=== PATIENT | male | born 1985 | race Caucasian/White ===

== ENCOUNTER 2018-07-08 06:46 | Emergency (ER) | payer OTHER ==
[2018-07-08 06:52] VITALS: BP 134/74; PULSE 97; RESP 19; TEMP 98
[2018-07-08] MEDS ORDERED: SULFAMETH-TMP DS STARTER PACK 2 TAB BTL PO STA (07:26)
--- NOTE | 2018-07-08 07:29 | ED ---
General Adult HPI - General Chief complaint: Skin/Abscess/Foreign Body Stated complaint: lumps in armpit Time Seen by Provider: 07/08/18 07:16 Source: patient, RN notes reviewed Mode of arrival: ambulatory Limitations: no limitations - Related Data Home Medications Medication Instructions Recorded Confirmed D-Methorphan/PE/Acetaminophen 1 cap PO DAILY PRN 07/08/18 07/08/18 [Vicks Dayquil Liquicaps] Ibuprofen [Motrin Ib] 600 mg PO Q6H PRN 07/08/18 07/08/18 Previous Rx's Medication Instructions Recorded Sulfamethox-Tmp 800-160Mg [Bactrim 1 tab PO Q12HR #20 tab 07/08/18 DS 800-160 mg] Allergies Allergy/AdvReac Type Severity Reaction Status Date / Time No Known Allergies Allergy Verified 07/08/18 07:21 Review of Systems ROS Statement: Those systems with pertinent positive or pertinent negative responses have been documented in the HPI. ROS Other: All systems not noted in ROS Statement are negative. Past Medical History Past Medical History: No Reported History History of Any Multi-Drug Resistant Organisms: None Reported Past Surgical History: Hernia Repair Past Psychological History: Depression Smoking Status: Current every day smoker Past Alcohol Use History: Occasional Past Drug Use History: None Reported General Exam Limitations: no limitations Course Vital Signs 07/08/18 06:49 Temperature 98.0 F Pulse Rate 97 Respiratory 19 Rate Blood Pressure 134/74 O2 Sat by Pulse 96 Oximetry Disposition Clinical Impression: Abscess Disposition: HOME SELF-CARE Condition: Good Instructions: Abscess (ED) Additional Instructions: Please use warm compresses to the affected area as discussed. Please use antibiotic as prescribed. Please follow-up surgeon over the next 2 days if symptoms are improving. Please return to the emergency room if any symptoms increase or worsen as discussed. Prescriptions: Sulfamethox-Tmp 800-160Mg [Bactrim DS 800-160 mg] 1 tab PO Q12HR #20 tab Is patient prescribed a controlled substance at d/c from ED?: No Referrals: Riccardo Dunbar MD [Primary Care Provider] - 1-2 days Alvaro Mathis MD [Medical Doctor] - 1-2 days Time of Disposition: 07:28
== END 2018-07-08 07:37 | disposition home or self-care (01) ==
LOC: EC 06:46
DX: L02.414 Cutaneous abscess of left upper limb (principal); F17.200 Nicotine dependence, unspecified, uncomplicated
CPT/HCPCS: 99282

== ENCOUNTER 2018-07-11 03:36 | Inpatient (IN) | payer OTHER ==
--- NOTE | 2018-07-11 04:07 | ED ---
General Adult HPI - General Chief complaint: Psychiatric Symptoms Stated complaint: petition Time Seen by Provider: 07/11/18 03:48 Source: patient Mode of arrival: ambulatory Limitations: no limitations - History of Present Illness Initial comments: Marcell is a 33-year-old gentleman who is brought to the emergency department today I police for psychiatric evaluation. Per the patient he has been feeling suicidal because his has indicated that she wants to in their marriage. Patient reports that he been drinking alcohol this evening and then decided to kill himself. He walked into his driveway with a loaded shotgun with an intent to shoot himself. However one of his friends contacted police and police arrived on scene, patient had the shotgun beside him, he didn't make any attempt to harm anybody else. Police were able to bring the patient in without any difficulty.. Rupali report that the patient was arrested Thursday night at a bar because he was intoxicated and had a concealed gun on him at that time. He was released from police custody Thursday. They were called to a residence this evening for possible suicidal her son with a gun, he reports that they arrived and the patient was sitting in his driveway, with a shotgun beside him. On further evaluation the shotgun was in fact bloated. The she remained calm and cooperative insisting that he'll need to harm himself else. He was agreeable to stretch ER. - Related Data Home Medications Medication Instructions Recorded Confirmed D-Methorphan/PE/Acetaminophen 1 cap PO DAILY PRN 07/08/18 07/11/18 [Vicks Dayquil Liquicaps] Ibuprofen [Motrin Ib] 600 mg PO Q6H PRN 07/08/18 07/11/18 Previous Rx's Medication Instructions Recorded Ibuprofen [Motrin] 800 mg PO Q6HR #20 tab 07/08/18 Allergies Allergy/AdvReac Type Severity Reaction Status Date / Time No Known Allergies Allergy Verified 07/11/18 03:41 Review of Systems ROS Statement: Those systems with pertinent positive or pertinent negative responses have been documented in the HPI. ROS Other: All systems not noted in ROS Statement are negative. Past Medical History Past Medical History: No Reported History History of Any Multi-Drug Resistant Organisms: None Reported Past Surgical History: Hernia Repair Past Psychological History: Depression Smoking Status: Current every day smoker Past Alcohol Use History: Occasional Past Drug Use History: None Reported General Exam - General Exam Comments Initial Comments: GENERAL: Patient is well-developed and well-nourished. Patient appears intoxicated HENT: Normocephalic, Atraumatic. EYES: The sclera were anicteric and conjunctiva were pink and moist. Extraocular movements were intact and pupils were equal round and reactive to light. Eyelids were unremarkable. PULMONARY: Unlabored respirations. Good breath sounds bilaterally. No audible rales rhonchi or wheezing was noted. CARDIOVASCULAR: There is a regular rate and rhythm without any murmurs gallops or rubs. ABDOMEN: Soft and nontender with normal bowel sounds. SKIN: Skin is clear with no lesions or rashes and otherwise unremarkable. NEUROLOGIC: Patient is alert and oriented x3. Cranial nerves II through XII are grossly intact. Motor and sensory are also intact. Normal speech, volume and content. Symmetrical smile. MUSCULOSKELETAL: Normal extremities with adequate strength and full range of motion. No lower extremity swelling or edema. No calf tenderness. LYMPHATICS: No significant lymphadenopathy is noted PSYCHIATRIC: Suicidal Limitations: no limitations Limitations: no limitations Course Vital Signs 07/11/18 07/11/18 03:38 06:53 Temperature 98 F 97.7 F Pulse Rate 94 72 Respiratory 16 16 Rate Blood Pressure 126/83 123/74 O2 Sat by Pulse 95 99 Oximetry Medical Decision Making - Medical Decision Making Patient was seen and evaluated immediately upon arrival to the emergency department. Patient was in police custody for suicidal thoughts patient actively expressing suicidal thoughts. Patient is intoxicated, has a history of alcohol abuse, reports recent possible dissolution of his marriage, was found with a loaded shotgun. I do feel this patient is very high risk for completing suicide. Patient was petitioned by police. Currently intoxicated with alcohol 0.12, will be sober and approximately 2-3 hours and he can be evaluated by psychiatry. Patient calm cooperative in the ER. - Lab Data Lab Results 07/11/18 Range/Units 03:51 Urine Opiates Screen Not Detected (NotDetected) Ur Oxycodone Screen Not Detected (NotDetected) Urine Methadone Screen Not Detected (NotDetected) Ur Propoxyphene Screen Not Detected (NotDetected) Ur Barbiturates Screen Not Detected (NotDetected) U Tricyclic Antidepress Not Detected (NotDetected) Ur Phencyclidine Scrn Not Detected (NotDetected) Ur Amphetamines Screen Not Detected (NotDetected) U Methamphetamines Scrn Not Detected (NotDetected) U Benzodiazepines Scrn Not Detected (NotDetected) Urine Cocaine Screen Not Detected (NotDetected) U Marijuana (THC) Screen Not Detected (NotDetected) Disposition Clinical Impression: Depression, Suicidal ideation Disposition: TRANSFER TO PSYCH HOSP/UNIT Condition: Serious Referrals: Riccardo Dunbar MD [Primary Care Provider] - 1-2 days
[2018-07-11 04:10] LABS: Amphetamine Screen,Urine Not Detected (NotDetected); Barbiturate Screen,Urine Not Detected (NotDetected); Benzodiazepines Screen,Urine Not Detected (NotDetected); Cocaine Screen,Urine Not Detected (NotDetected); Methadone Screen, Urine Not Detected (NotDetected); Opiate Screen,Urine Not Detected (NotDetected); Oxycodone Screen, Urine Not Detected (NotDetected); Phencyclidine Screen,Urine Not Detected (NotDetected); Tricyclic Antidepressant,Urine Not Detected (NotDetected); Urn Cannabinoid Scrn Not Detected (NotDetected)
[2018-07-11 08:49] VITALS: BMI 22.6
[2018-07-11] MEDS ORDERED: ACETAMINOPHEN TAB 325 MG TAB PO PRN (09:18)
[2018-07-11] MEDS ORDERED: MAG HYDROX/AL HYDROX/SIMETH 30 ML CUP PO PRN (09:18)
[2018-07-11] MEDS ORDERED: MAGNESIUM HYDROXIDE 2,400 MG/10 ML CUP PO PRN (09:18)
[2018-07-11] MEDS ORDERED: ZIPRASIDONE 20 MG VIAL IM PRN (09:18)
[2018-07-11] MEDS ORDERED: NON-FORMULARY DRUG (D-Methorphan/Pe/Acetaminophen [Vicks Dayquil Liquicaps] 1 CAP) PO PRN (09:29)
[2018-07-11] MEDS: SULFAMETHOX-TMP 800-160MG 1 EACH TAB PO SCH ×2 (10:23→20:29)
[2018-07-11] MEDS: NICOTINE 21MG/24HR PATCH TRANSDERM SCH (10:26)
--- NOTE | 2018-07-11 12:34 | P.CONS ---
History of Present Illness - History of Present Illness This is a pleasant 53 years old male with past medical history of depression who comes to the psychiatric unit with depression symptoms and suicidal ideations when he was pointing again to his head in the roadway, and he was brought by the police handcuffed to the emergency room as per patient. We've been consulted for left arm complaining. Patient complains from swelling and erythema and tenderness in his left armpit not sure for how long but he thinks this for about a week or so. He was started on Bactrim for suspected infection and abscess. And his open the wound about 2 days ago where he got some relief for 2-3 days and now is back again Review of Systems CONSTITUTIONAL: No fever, no malaise, no fatigue. HEENT: No recent visual problems or hearing problems. Denied any sore throat. CARDIOVASCULAR: No orthopnea, PND, no palpitations, no syncope. PULMONARY: No shortness of breath, no cough, no hemoptysis. GASTROINTESTINAL: No diarrhea, no nausea, no vomiting, no abdominal pain. Normoactive bowel sounds. NEUROLOGICAL: No headaches, no weakness, no numbness. HEMATOLOGICAL: Denies any bleeding or petechiae. GENITOURINARY: Denies any burning micturition, frequency, or urgency. MUSCULOSKELETAL/RHEUMATOLOGICAL: Denies any joint pain, swelling, or any muscle pain. ENDOCRINE: Denies any polyuria or polydipsia. Past Medical History Past Medical History: No Reported History History of Any Multi-Drug Resistant Organisms: None Reported Past Surgical History: Hernia Repair Past Psychological History: Depression Smoking Status: Current every day smoker Past Alcohol Use History: Occasional Past Drug Use History: None Reported - Past Family History Mother Family Medical History: Asthma, CVA/TIA Medications and Allergies Home Medications Medication Instructions Recorded Confirmed Type D-Methorphan/PE/Acetaminophen 1 cap PO DAILY PRN 07/08/18 07/11/18 History [Vicks Dayquil Liquicaps] Ibuprofen [Motrin Ib] 600 mg PO Q6H PRN 07/08/18 07/11/18 History Ibuprofen [Motrin] 800 mg PO Q6HR #20 tab 07/08/18 07/11/18 Rx Allergies Allergy/AdvReac Type Severity Reaction Status Date / Time No Known Allergies Allergy Verified 07/11/18 09:33 Physical Exam Vitals: Vital Signs Temp Pulse Pulse Resp BP BP Pulse Ox 07/11/18 08:34 96.7 F L 77 16 126/64 98 07/11/18 08:06 98 F 80 16 122/80 99 07/11/18 06:53 97.7 F 72 16 123/74 99 07/11/18 03:38 98 F 94 16 126/83 95 Intake and Output 07/10/18 07/11/18 07/11/18 22:59 06:59 14:59 Other: Weight 72.575 kg 69.4 kg GENERAL: The patient is alert and oriented x3, not in any acute distress. Well developed, well nourished. HEENT: Pupils are round and equally reacting to light. EOMI. No scleral icterus. No conjunctival pallor. Normocephalic, atraumatic. No pharyngeal erythema. No thyromegaly. CARDIOVASCULAR: S1 and S2 present. No murmurs, rubs, or gallops. PULMONARY: Chest is clear to auscultation, no wheezing or crackles. ABDOMEN: Soft, nontender, nondistended, normoactive bowel sounds. No palpable organomegaly. MUSCULOSKELETAL: No joint swelling or deformity. EXTREMITIES: No cyanosis, clubbing, or pedal edema. -Left armpit swelling with fluctuation areas surrounded by erythema and tenderness with some purulent discharge on his close NEUROLOGICAL: Gross neurological examination did not reveal any focal deficits. SKIN: No rashes. Assessment and Plan Assessment: Left armpit infection and abscess Major depression Suicidal ideation Plan: A pleasant 53 years old male who presents because of suicidal ideation. Has left armpit abscess. On Bactrim. Continue same treatment. Continue with symptomatic treatment. Call surgical consult and infectious disease for evaluation. Check blood test and monitor labs and vitals. Management of psychiatric illnesses including but not limited to depression and suicidal ideation as per primary team. DVT and GI prophylaxis . Further recommendations the clinical progress of the patient DVT prophylaxis:Patient is mobile no need for heparin GI prophylaxis:No need Thank you for consulting us, please feel free to contact us for any further clarification of question
[2018-07-11] MEDS: buPROPion XL 150 MG TAB.ER.24H PO SCH (12:58)
[2018-07-11] MEDS: ARIPiprazole 2 MG TAB PO SCH (12:58)
[2018-07-11] MEDS: LORazepam 1 MG TAB PO PRN ×2 (12:58→20:29)
[2018-07-11 13:09] LABS: Basophils # (A) 0.1 k/uL (0-0.2); Basophils % (A) 1 %; Eosinophils # (A) 0.2 k/uL (0-0.7); Eosinophils % (A) 2 %; HCT 46.1 % (39.0-53.0); HGB 15.9 gm/dL (13.0-17.5); Lymphocytes # (A) 1.8 k/uL (1.0-4.8); Lymphocytes % (A) 19 %; MCH 30.4 pg (25.0-35.0); MCHC 34.5 g/dL (31.0-37.0); MCV 88.2 fL (80.0-100.0); Mean Platelet Volume 6.6; Monocytes # (A) 0.5 k/uL (0-1.0); Monocytes % (A) 6 %; Neutrophils # (A) 6.7 k/uL (1.3-7.7); Neutrophils % (A) 71 %; Platelet Count 295 k/uL (150-450); RBC 5.22 m/uL (4.30-5.90); RDW 13.1 % (11.5-15.5); WBC 9.4 k/uL (3.8-10.6)
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
[2018-07-11 13:29] LABS: Anion Gap 10 mmol/L; Blood Urea Nitrogen 16 mg/dL (9-20); Calcium 9.4 mg/dL (8.4-10.2); Carbon Dioxide 24 mmol/L (22-30); Chloride 105 mmol/L (98-107); Glucose 91 mg/dL (74-99); Potassium 5.1 mmol/L (3.5-5.1); Sodium 139 mmol/L (137-145)
--- NOTE | 2018-07-11 17:35 | CONS ---
CONSULTATION DATE OF SERVICE: 07/11/2018. REASON FOR CONSULTATION: Left axillary abscess. HISTORY OF PRESENT ILLNESS: The patient is a 33-year-old male with a past medical history significant for recurrent folliculitis of his left axillary area. The patient states started as a which his left it and subsequently the area healed. Afterwards another area started getting growing become swollen, red and painful that was lanced by the again. Afterwards, the patient started having another area becoming more swollen and red and painful. Pain described to be throbbing almost 10/10 and severe. Did have some chills but denies any high-grade fever. With these symptoms, the patient did present to the [facility] ER on the where the patient has been diagnosed with left axillary abscess and cellulitis. The patient was started on Bactrim DS. The patient now being brought back to the ER by the police after apparently the patient was noticed to be suicidal. The patient apparently had been drinking alcohol and decided to kill himself, he walked into his driveway with a loaded shotgun with intent to shoot himself. One of his friends contacted the police and police arrived on the scene. The patient had a shotgun beside him. Subsequently the patient has been brought to the ER and has been admitted to the psych unit. Infectious disease was consulted for management of his underlying left axillary abscess. Currently started on oral Bactrim DS. REVIEW OF SYSTEMS: CONSTITUTIONAL: Positive for weakness and chills. Denies high-grade fever. Eyes no complaint. ENT no complaint. Respiratory no complaint. Cardiovascular no complaint. Genitourinary no complaint. Gastrointestinal: No complaint. Musculoskeletal no complaint. INTEGUMENTARY: As per HPI. Psychological as per HPI. ENDOCRINE: No complaint. Neurological as per HPI. PAST MEDICAL HISTORY: Depression, history of recurrent infection, aspiration left axillary area. PAST SURGICAL HISTORY: Hernia repair. SOCIAL HISTORY: Patient current everyday smoker. Patient drinks. No drug use. FAMILY HISTORY: No pertinent findings noticed. ALLERGIES: No known drug allergies. MEDICATIONS: The patient is currently on Tylenol, Maalox, Abilify, Wellbutrin, Motrin, Ativan, milk of magnesia, nicotine patch, Bactrim DS, . EXAMINATION: Blood pressure 126/64 with a pulse of 77, temperature 96.7. He is 98% on room air. General description is a middle aged male up in the chair in no distress. No tachypnea or accessory muscles of respiration use. HEENT: Shows no pallor or scleral icterus. Oral mucosa membranes are moist. No pharyngeal erythema or thrush. Neck trachea central. No thyromegaly. LUNGS: Unlabored breathing. Clear to auscultation anteriorly. No wheezes or crackles. Heart S1, S2. Regular rate and rhythm. ABDOMEN: Soft, no tenderness. No rigidity. EXTREMITIES: No edema of the feet. Examination of left axillary area, he did have multiple indurated areas which are painful to touch. No open area or any drainage. Neurologically: Patient is awake, alert, oriented times three. Mood and affect normal. LABS: Hemoglobin is 15.8, white count 9.4 with a BUN of 16, creatinine 0.98. Electrolytes have been normal. Urine drug screen has been negative. DIAGNOSTIC IMPRESSION AND PLAN: Patient with left axillary abscess, multiple that will likely need surgical drainage and in view of the and a streptococcal infection and likely MRSA. PLAN: We recommended IV vancomycin, pharmacy to dose. However, being informed by the community youth secretary they could not infuse vancomycin on this floor. The patient is too unstable mentally to be transferred to a regular medical floor. Hence plan at this time will be to increase the Bactrim DS to 2 p.o. b.i.d. Await surgical evaluation and drainage of this abscess at which time deep culture should be obtained. Once his mental condition stabilizes, and if the patient is not improving with oral Bactrim, we may need to transfer him to the medical floor for IV antibiotic therapy. Than you for this consultation. Will follow this patient along with you. MMODL / IJN: [id number] /
[2018-07-11] MEDS: IBUPROFEN 600 MG TAB PO PRN (20:30)
[2018-07-12] MEDS: SULFAMETHOX-TMP 800-160MG 1 EACH TAB PO SCH (07:47)
[2018-07-12] MEDS: ARIPiprazole 2 MG TAB PO SCH (07:47)
[2018-07-12] MEDS: buPROPion XL 150 MG TAB.ER.24H PO SCH (07:47)
[2018-07-12] MEDS: NICOTINE 21MG/24HR PATCH TRANSDERM SCH (07:47)
[2018-07-12] MEDS ORDERED: ceFAZolin IN SWFI 2 GM/20 ML SYRINGE IVP ONE (08:39)
[2018-07-12] MEDS: LORazepam 1 MG TAB PO PRN (08:58)
[2018-07-12 09:38] LABS: Basophils % (A) 1 %; Eosinophils # (A) 0.1 k/uL (0-0.7); Eosinophils % (A) 2 %; HCT 46.7 % (39.0-53.0); HGB 15.6 gm/dL (13.0-17.5); Lymphocytes # (A) 1.2 k/uL (1.0-4.8); Lymphocytes % (A) 19 %; MCH 29.9 pg (25.0-35.0); MCHC 33.4 g/dL (31.0-37.0); MCV 89.5 fL (80.0-100.0); Mean Platelet Volume 6.5; Monocytes # (A) 0.3 k/uL (0-1.0); Monocytes % (A) 6 %; Neutrophils # (A) 4.2 k/uL (1.3-7.7); Neutrophils % (A) 71 %; Platelet Count 299 k/uL (150-450); RBC 5.22 m/uL (4.30-5.90); WBC 5.9 k/uL (3.8-10.6)
[2018-07-12 09:54] LABS: Albumin 4.1 g/dL (3.5-5.0); Calcium 9.5 mg/dL (8.4-10.2); Potassium 4.4 mmol/L (3.5-5.1); Total Protein 6.8 g/dL (6.3-8.2)
--- NOTE | 2018-07-12 10:01 | P.GSCN ---
History of Present Illness Consult date: 07/12/18 History of present illness: CHIEF COMPLAINT: Left axillary abscess HISTORY OF PRESENT ILLNESS: The patient is a 33-year-old male who reports over several week history of a left axillary abscess. Reports the size being at least the size of a tennis ball. He tried self treating with a needle rupture of the abscess with minimal output. No reports of recent fevers or chills. He reports moderate tenderness of the left axilla and difficulty with moving his arm. As result of the size of the abscess, general surgery is consulted PAST MEDICAL HISTORY: See list. PAST SURGICAL HISTORY: See list. MEDICATIONS: See list. ALLERGIES: See list. SOCIAL HISTORY: No illicit drug use FAMILY HISTORY: No reports of Crohn's disease or inflammatory bowel disease REVIEW OF ORGAN SYSTEMS: CONSTITUTIONAL: No fevers or chills HEENT: No troubles with vision or hearing. No reports of dysphagia. ENDOCRINE: No reports of thyroid disorders. No diabetes. CARDIOVASCULAR: No heart attack. No chest pain. RESPIRATORY: No shortness of breath or pneumonia. GASTROINTESTINAL: No reports of recent blood in stools. NEURO: No reports of stroke or seizure disorders. PSYCH: Has depression with suicidal ideation HEMATOLOGIC: No easy bruising or bleeding LYMPHATIC: The patient denies any lumps and bumps around the neck. GENITOURINARY: Denies any blood in urine or increased urinary frequency. MUSCULOSKELETAL: Denies current back pain, stiffness or joint arthritis. SKIN: Please see above. Has a left axillary abscess. PHYSICAL EXAM: VITAL SIGNS: Currently stable. GENERAL: Well-developed in no acute distress. HEENT: No sclera icterus. Extraocular movements grossly intact. Moist buccal mucosa. Head is atraumatic, normocephalic. Hears conversational speech. No nasal drainage. NECK: Supple without lymphadenopathy. CHEST: Non-labored respirations and equal bilateral excursions. CARDIOVASCULAR: Regular rate with regular rhythm. Palpable 2+ radial pulses. ABDOMEN: Soft. Nondistended. No peritonitis. Minimal diffuse tenderness MUSCULOSKELETAL: No clubbing, cyanosis or edema. NEUROLOGIC: No focal or lateralizing signs. Cranial nerves II through XII grossly intact. PSYCH: Appropriate affect. Alert and oriented to person, place and time. SKIN: 4 cm induration and cellulitis of the left axilla over 4 cm in size with minimal drainage. LABS: Reviewed ASSESSMENT: 1. Complicated left axillary abscess, deep, 4 cm PLAN: 1. Recommend surgical drainage of complex left axillary abscess. 2. Postprocedure, will need packing daily. 3. Antibiotics per cultures to be obtained in the operating room Thank you for this kind consultation. Past Medical History Past Medical History: No Reported History History of Any Multi-Drug Resistant Organisms: None Reported Past Surgical History: Hernia Repair Past Psychological History: Depression Smoking Status: Current every day smoker Past Alcohol Use History: Occasional Past Drug Use History: None Reported - Past Family History Mother Family Medical History: Asthma, CVA/TIA Medications and Allergies Home Medications Medication Instructions Recorded Confirmed Type D-Methorphan/PE/Acetaminophen 1 cap PO DAILY PRN 07/08/18 07/11/18 History [Vicks Dayquil Liquicaps] Ibuprofen [Motrin Ib] 600 mg PO Q6H PRN 07/08/18 07/11/18 History Ibuprofen [Motrin] 800 mg PO Q6HR #20 tab 07/08/18 07/11/18 Rx Allergies Allergy/AdvReac Type Severity Reaction Status Date / Time No Known Allergies Allergy Verified 07/11/18 09:33 Surgical - Exam Vital Signs Temp Pulse Resp BP Pulse Ox 98 F 94 16 126/83 95 07/11/18 03:38 07/11/18 03:38 07/11/18 03:38 07/11/18 03:38 07/11/18 03:38 Results - Labs 07/12/18 09:20 07/12/18 09:20 Diabetes panel 07/11/18 Range/Units 12:49 Sodium 139 (137-145) mmol/L Potassium 5.1 (3.5-5.1) mmol/L Chloride 105 (98-107) mmol/L Carbon Dioxide 24 (22-30) mmol/L BUN 16 (9-20) mg/dL Creatinine 0.98 (0.66-1.25) mg/dL Glucose 91 (74-99) mg/dL Calcium 9.4 (8.4-10.2) mg/dL Calcium panel 07/11/18 Range/Units 12:49 Calcium 9.4 (8.4-10.2) mg/dL Pituitary panel 07/11/18 Range/Units 12:49 Sodium 139 (137-145) mmol/L Potassium 5.1 (3.5-5.1) mmol/L Chloride 105 (98-107) mmol/L Carbon Dioxide 24 (22-30) mmol/L BUN 16 (9-20) mg/dL Creatinine 0.98 (0.66-1.25) mg/dL Glucose 91 (74-99) mg/dL Calcium 9.4 (8.4-10.2) mg/dL Adrenal panel 07/11/18 Range/Units 12:49 Sodium 139 (137-145) mmol/L Potassium 5.1 (3.5-5.1) mmol/L Chloride 105 (98-107) mmol/L Carbon Dioxide 24 (22-30) mmol/L BUN 16 (9-20) mg/dL Creatinine 0.98 (0.66-1.25) mg/dL Glucose 91 (74-99) mg/dL Calcium 9.4 (8.4-10.2) mg/dL Assessment and Plan (1) Cutaneous abscess of left axilla Current Visit: Yes Status: Acute Code(s): L02.412 - CUTANEOUS ABSCESS OF LEFT AXILLA SNOMED Code(s): 66907094 (2) Cellulitis of axilla, left Current Visit: Yes Status: Acute Code(s): L03.112 - CELLULITIS OF LEFT AXILLA SNOMED Code(s): 59990480 (3) Depression Current Visit: Yes Status: Acute Code(s): F32.9 - MAJOR DEPRESSIVE DISORDER , SINGLE EPISODE, UNSPECIFIED SNOMED Code(s): 54975969 (4) Suicidal ideation Current Visit: Yes Status: Acute Code(s): R45.851 - SUICIDAL IDEATIONS SNOMED Code(s): 7174893
[2018-07-12 12:45] LABS: Hemoglobin A1C 4.9 % (4.0-6.0)
--- NOTE | 2018-07-12 13:12 | P.PN ---
Subjective Progress Note Date: 07/12/18 Principal diagnosis: Diagnoses; bipolar affective disorder most probably2 with the most recent onset of depression. Interval history: Patient was interviewed and reviewed his medical history which he corroborated. It includes the following personal social history is born in [place]. Raised by both parents. Said he dropped out of ninth grade and got his GED. Occupation: [employer] Mental status examination: This is a 33-year-old male who looks his stated age but is very depressed tearful withdrawn during the entire interview. He was pushing his IV part to the interview and was able to ambulate without difficulties. Mood is rated as 10 out of 10 depressed anxious 10 out of 10 and ruminating about his impending divorce. Some mixture family has 7 total children in the family and they were taken away by child protective services. He is suicidal but said he feels safe and will not harm himself on the unit and will seek nursing staff reports staff when he feels this way. He is slow and hesitant and halting. Attitude and behavior is guarded withdrawn. Mood is severely depressed with suicidal ideations. Affect is flat L incongruent at times. Orientation is to person and place and has difficult time. Thought content no delusions or obsessions or phobias. Risk factors suicidal ideation with recent attempts and brought to the hospital by police. Perception denies any hallucinations visual auditory or tactile. I'll process tangential. Concentration impaired per observation with the patient is not able to focus and concentrate on Thursday for intermediate and remote history he is totally consumed with grief of loss of his marriage. It is of interest he went through a similar episode in his first marriage. Recent memory is impaired he is only able to do 1 out of 3 recall. Remote memory is impaired as he cannot recall past events are related to his history. His intelligence is average based on history raised on vocabulary Syntex grammar content. Judgment poor per patient' s history of present illness. Insight is extremely poor. Patient's strengths: Steady employment and housing stability. Patient limitations and intellectual impairment, lack of social support, complicated by medical illness the recent need for surgery. Estimated length of stay: 10 days Initial discharge plan should be to local [facility] since his primary care has not been consistent in following up with. Justification for hospitalization includes danger to himself, loss of functioning, emotional topic requiring 24-hour medical and nursing care, need for special drug therapy, tired of social, inability to meet basic life and health needs, and failure of treatment at a lower level. [id number] time: 15 minutes Objective - Vital Signs Vital signs: Vital Signs Temp 97.9 F 07/12/18 06:40 Pulse 65 07/12/18 06:40 Resp 18 07/12/18 06:40 BP 137/87 07/12/18 06:40 Pulse Ox 98 07/12/18 06:40 Intake & Output 07/11/18 07/12/18 07/12/18 18:59 06:59 18:59 Weight 69.4 kg - Labs CBC & Chem 7: 07/12/18 09:20 07/12/18 09:20 Labs: Abnormal Lab Results - Last 24 Hours (Table) 07/12/18 Range/Units 09:20 BUN 22 H (9-20) mg/dL LDL Cholesterol, Calc 105 H (0-99) mg/dL
[2018-07-12] MEDS ORDERED: predniSONE 20 MG TAB PO SCH (19:15)
[2018-07-12] MEDS ORDERED: lamoTRIgine 25 MG TAB PO SCH (21:00)
[2018-07-12] MEDS ORDERED: HYDROcodone/APAP 5-325MG 1 EACH TAB PO PRN (22:32)
[2018-07-12] MEDS ORDERED: NALOXONE 0.4 MG/ML 1 ML VIAL IV PRN (22:32)
[2018-07-12] MEDS ORDERED: ONDANSETRON 4 MG/2 ML VIAL IVP PRN (22:32)
--- NOTE | 2018-07-12 22:36 | P.PCN ---
Date of Procedure: 07/12/18 Preoperative Diagnosis: Complex left axillary abscess Postoperative Diagnosis: Same, 7 x 8 cm complex left axillary abscess with hydradenitis Procedure(s) Performed: Drainage of left axillary abscess 7x 8 cm into deep subcutaneous tissue Anesthesia: ANTWAN, local Surgeon: Skye Hartley Estimated Blood Loss (ml): 30 Pathology: other (Anaerobic and aerobic culture left axilla) Condition: stable Disposition: floor
--- NOTE | 2018-07-12 22:40 | P.OP ---
Date of Procedure: 07/12/18 Description of Procedure: SURGEON: SANDRINE ALVAREZ MD BATCH HEAT TREAT OPERATOR: NONE. PREOPERATIVE DIAGNOSES: 1. Acute on chronic complicated deep left axillary abscess and cellulitis POSTOPERATIVE DIAGNOSES: 1. Acute on chronic complicated deep left axillary abscess and cellulitis, 8 x 7 cm subfascial and subcutaneous. PROCEDURES PERFORMED: 1. Incision and drainage of acute on chronic complicated hidradenitis 8 x 7 cm left axillary down to the fascia. 2. Mechanical debridement using water jet lavage 1 L normal saline. ANESTHESIA: GETA, local ESTIMATED BLOOD LOSS: 30 mL. SPECIMENS REMOVED: Complex left axillary hidradenitis including aerobic and anaerobic cultures. COMPLICATIONS: None. Pathology: other (Aerobic and anaerobic cultures left axillary abscess) Condition: stable Operative Findings: Recurrent hidradenitis of the left axilla, with drainage of large 7 x 8 cm pocket. Aerobic and anaerobic cultures obtained. INDICATIONS: The patient is a 33-year-old male who presents with complex acute on chronic left axillary hidradenitis. Given the size of his abscess including severe pain, surgical options were discussed. Benefits and risks including cosmetic deformity, need for further surgery, bleeding, infection was discussed. He had given informed consent. DESCRIPTION OF PROCEDURE: The patient was brought into the operating room and in laid supine position. After general induction, the left axilla was prepped and draped in the standard sterile fashion. Prior to incision, a timeout protocol was performed by the surgical team regarding the patient's name, including procedure to be performed. A field block using local anesthetic was placed to minimize postoperative pain. Using #15 blade, an incision was made down into the subcutaneous tissue to the level fascia along the posterior lateral aspect of the left axilla. Electro-Bovie cautery was used to control for hemostasis. Within the wound, drainage of the complex 7 x 8 cm abscess was identified and passed off with anaerobic and aerobic cultures obtained. Next, the wound bed was copiously irrigated with combination of mechanical debridement using water jet lavage of 1 L. Hemostasis was checked with electro-Bovie cautery. Dressings using iodoform packing 12 inch was placed into the wound followed by 4 x 4 gauze and ABD with wide surgical tape. At the end of the procedure, the needle, sponge and instrument counts had been verified correct by the director medical surgical. The patient had tolerated the procedure well and was taken to the postanesthesia care unit in stable condition.
[2018-07-12] MEDS: KETOROLAC 30 MG/ML 1 ML VIAL IM SCH (22:59)
[2018-07-12] MEDS ORDERED: HYDROmorphone 1 MG/ML 1 ML SYRINGE IM PRN (23:16)
[2018-07-12] MEDS: diphenhydrAMINE 25 MG CAP PO PRN (23:26)
[2018-07-13] MEDS: KETOROLAC 30 MG/ML 1 ML VIAL IM SCH ×4 (05:57→20:17)
[2018-07-13] MEDS: NICOTINE 21MG/24HR PATCH TRANSDERM SCH (08:47)
[2018-07-13] MEDS: ARIPiprazole 2 MG TAB PO SCH (08:50)
[2018-07-13] MEDS: LORazepam 1 MG TAB PO PRN ×2 (08:51→17:34)
[2018-07-13 09:15] LABS: Basophils % (A) 0 %; Eosinophils % (A) 0 %; HCT 49.2 % (39.0-53.0); HGB 16.2 gm/dL (13.0-17.5); Lymphocytes # (A) 0.9 k/uL (1.0-4.8); Lymphocytes % (A) 10 %; MCH 29.9 pg (25.0-35.0); MCV 90.8 fL (80.0-100.0); Mean Platelet Volume 6.6; Monocytes # (A) 0.2 k/uL (0-1.0); Monocytes % (A) 2 %; Neutrophils # (A) 8.1 k/uL (1.3-7.7); Neutrophils % (A) 87 %; Platelet Count 382 k/uL (150-450); RBC 5.42 m/uL (4.30-5.90); WBC 9.2 k/uL (3.8-10.6)
[2018-07-13 09:22] LABS: Anion Gap 14 mmol/L; Blood Urea Nitrogen 17 mg/dL (9-20); Calcium 9.7 mg/dL (8.4-10.2); Carbon Dioxide 23 mmol/L (22-30); Chloride 101 mmol/L (98-107); Glucose 172 mg/dL (74-99); Potassium 5.1 mmol/L (3.5-5.1); Sodium 138 mmol/L (137-145)
--- NOTE | 2018-07-13 10:03 | P.PN ---
Subjective Progress Note Date: 07/13/18 Principal diagnosis: Diagnoses; bipolar affective disorder most probably type with the most recent onset of depression. Diagnoses; bipolar affective disorder most probably type 2 with the most recent onset of depression. Interval history: Patient was interviewed and reviewed his medical history which he corroborated. It includes the following personal social history is born in [place]. Raised by both parents. Said he dropped out of ninth grade and got his GED. Occupation: residential driver for [employer] Mental status examination: This is a 33-year-old male who looks his stated age but is very depressed tearful withdrawn during the entire interview. He was pushing his IV part to the interview and was able to ambulate without difficulties. Mood is rated as 2-3 out of 2-3 depressed anxious 10 out of 10 and ruminating about his impending divorce. Some mixture family has 7 total children in the family and they were taken away by child protective services. He is suicidal but said he feels safe and will not harm himself on the unit and will seek nursing staff reports staff when he feels this way. He is slow and hesitant and halting. Attitude and behavior is guarded withdrawn. Mood is severely depressed with no suicidal ideation. Affect is flat incongruent at times. Orientation is to person and place and time. Thought content no delusions or obsessions or phobias. Risk factors suicidal ideation with recent attempts and brought to the hospital by police. Perception denies any hallucinations visual auditory or tactile. I'll process tangential. Concentration impaired per observation with the patient is not able to focus and concentrate on Thursday for intermediate and remote history he is totally consumed with grief of loss of his marriage. It is of interest he went through a similar episode in his first marriage. Recent memory is impaired he is only able to do 1 out of 3 recall. Remote memory is impaired as he cannot recall past events are related to his history. His intelligence is average based on history raised on vocabulary Syntex grammar content. Judgment poor per patient' s history of present illness. Insight is extremely poor. Assessment:Bipolar depressed mood-severe Plan: titration of lamictal to 50 mg today; continue with abilify Continue integration into benitez and milieu therapeutic environment Estimate length of stay 4 more days possible Thursday Discharge to home with [facility] follow and PCP- Dr Simon; Objective - Vital Signs Vital signs: Vital Signs Temp 97.6 F 07/13/18 06:45 Pulse 68 07/13/18 06:45 Resp 16 07/13/18 06:45 BP 120/79 07/13/18 06:45 Pulse Ox 97 07/13/18 06:45 - Labs CBC & Chem 7: 07/13/18 08:22 07/13/18 08:22 Labs: Abnormal Lab Results - Last 24 Hours (Table) 07/12/18 07/13/18 07/13/18 Range/Units 09:20 08:22 08:22 Neutrophils # 8.1 H (1.3-7.7) k/uL Lymphocytes # 0.9 L (1.0-4.8) k/uL BUN 22 H (9-20) mg/dL Glucose 172 H (74-99) mg/dL LDL Cholesterol, Calc 105 H (0-99) mg/dL Microbiology - Last 24 Hours (Table) 07/12/18 22:21 Gram Stain - Preliminary Axilla - Left Wound Culture - Preliminary 07/12/18 22:21 Gram Stain - Preliminary Axilla - Left Wound Culture - Preliminary 07/12/18 22:21 Gram Stain - Preliminary Axilla - Left Wound Culture - Preliminary 07/12/18 22:21 Anaerobic Culture - Preliminary Axilla - Left 07/12/18 22:21 Anaerobic Culture - Preliminary Axilla - Left 07/12/18 22:21 Anaerobic Culture - Preliminary Axilla - Left
--- NOTE | 2018-07-13 11:05 | P.PN ---
Progress Note - Text Progress Note Date: 07/13/18 33-year-old being seen on the mental health unit up ambulating on the unit. Surgical dressing to the left axillary dry. Patient states there is less pain in the area. Patient is postop acute on chronic complicated deep left axillary abscess and cellulitis 8 x 7 cm. Patient underwent the incision and drainage of acute on chronic hidradenitis 8 x 7 cm left axillary down to the fascia. On July 12 Recurrent hidradenitis of the left axilla, with drainage of large 7 x 8 cm pocket patient is being followed by infectious disease Dr. Link for recommendations of antibiotic therapy. Dr. Link will follow up on cultures Dressing used were iodoform packing 12 inch placed into the wound followed by a 4 x 4 gauze and AVD with white surgical tape. Dressing is to be changed tomorrow on July 14. We'll follow with you. The above impression and plan of care have been discussed and directed by signing physician. Priti Vo nurse practitioner acting as scribe for signing physician.
[2018-07-13] MEDS: IBUPROFEN 600 MG TAB PO PRN (13:44)
--- NOTE | 2018-07-13 14:03 | PN ---
PROGRESS NOTE DATE OF SERVICE: 07/13/2018 REASON FOR FOLLOWUP: Left axillary abscess. INTERVAL HISTORY: The patient is currently afebrile. He is breathing comfortably. Pain to the left leg has decreased in intensity. Patient denies having any chest pain or shortness of breath, no cough. No abdominal pain. No diarrhea. PHYSICAL EXAMINATION: Blood pressure 120/79 with a pulse of 68, temperature 97.6, he is 97% on room air. General description is a middle-aged male, lying in bed in no distress. RESPIRATORY SYSTEM: Unlabored breathing, clear to auscultation anteriorly. Left leg is currently dressed up, no obvious drainage on the dressing. ABDOMEN: Soft, no tenderness. EXTREMITIES: No edema of the feet. LABS: Hemoglobin is 16.2, white count of 9.2, BUN of 17, creatinine 0.97. Cultures are currently pending. DIAGNOSTIC IMPRESSION AND PLAN: Patient with left axillary abscess, status post drainage. We are waiting for the culture to finalize. Concern is for possible methicillin-resistant Staphylococcus aureus. Patient currently covered with daptomycin that will be continued adjusting it further based on the culture report and clinical response. Continue supportive care. MMODL / IJN: [id number] /
[2018-07-13] MEDS: lamoTRIgine 25 MG TAB PO SCH (20:16)
--- NOTE | 2018-07-14 04:58 | PN ---
PROGRESS NOTE DATE OF SERVICE: 07/12/2018. REASON FOR FOLLOWUP: Left axillary abscess. INTERVAL HISTORY: The patient is afebrile. He is status post drainage of the left axillary abscess. Culture has been obtained. The patient tolerated the procedure. No nausea, no vomiting. No abdominal pain and no diarrhea. PHYSICAL EXAMINATION: On examination, blood pressure is 126/64 with a pulse of 77, temperature 96.7. He is 98% on room air. General description is a middle-aged male lying in bed in no distress. RESPIRATORY SYSTEM: Unlabored breathing, clear to auscultation anteriorly. HEART: S1, S2. Regular rate and rhythm. ABDOMEN: Soft, no tenderness. Left axillary area is currently dressed up. No obvious drainage on the dressing. LABS: Hemoglobin is 15.6, white count 5.9 with a BUN of 22, creatinine 1.22. DIAGNOSTIC IMPRESSION AND PLAN: Patient with left axillary abscess, status post drainage. Culture has been obtained. Unfortunately, vancomycin cannot be done on this floor, hence, the patient was started on daptomycin to cover for possible MRSA to be the likely pathogen adjusting antibiotic further based on the culture report. Continue with supportive care. MMODL / IJN: [id number] /
[2018-07-14] MEDS: KETOROLAC 30 MG/ML 1 ML VIAL IM SCH ×3 (05:52→16:26)
[2018-07-14] MEDS: LORazepam 1 MG TAB PO PRN (08:59)
[2018-07-14] MEDS: lamoTRIgine 25 MG TAB PO SCH (08:59)
[2018-07-14] MEDS: ARIPiprazole 2 MG TAB PO SCH (08:59)
--- NOTE | 2018-07-14 10:02 | P.PN ---
Subjective Progress Note Date: 07/14/18 Principal diagnosis: Diagnoses; bipolar affective disorder most probably type with the most recent onset of depression. Diagnoses; bipolar affective disorder most probably type with the most recent onset of depression. Diagnoses; bipolar affective disorder most probably type 2 with the most recent onset of depression. Interval history: Patient was interviewed and reviewed his medical history which he corroborated. It includes the following personal social history is born in [place]. Raised by both parents. Said he dropped out of ninth grade and got his GED. Occupation: [employer] Mental status examination: This is a 33-year-old male who looks his stated age but is very depressed tearful withdrawn during the entire interview. He was pushing his IV part to the interview and was able to ambulate without difficulties. Mood is rated as 2-3 out of 2-3 depressed anxious 8 out of 10 and ruminating about his impending divorce. Some mixture family has 7 total children in the family and they were taken away by child protective services. He is suicidal but said he feels safe and will not harm himself on the unit and will seek nursing staff reports staff when he feels this way. He is slow and hesitant and halting. Attitude and behavior is guarded withdrawn. Mood is severely depressed with no suicidal ideation. Affect is flat incongruent at times. Orientation is to person and place and time. Thought content no delusions or obsessions or phobias. Risk factors suicidal ideation with recent attempts and brought to the hospital by police. Perception denies any hallucinations visual auditory or tactile. I'll process tangential. Concentration impaired per observation with the patient is not able to focus and concentrate on Thursday for intermediate and remote history he is totally consumed with grief of loss of his marriage. It is of interest he went through a similar episode in his first marriage. Recent memory is impaired he is only able to do 1 out of 3 recall. Remote memory is impaired as he cannot recall past events are related to his history. His intelligence is average based on history raised on vocabulary Syntex grammar content. Judgment poor per patient' s history of present illness. Insight has improved. Discussed use of ativan and discouraged its use. and changed to klonopin 0.25 mg po prn bid as needed Objective - Vital Signs Vital signs: Vital Signs Temp 97.7 F 07/14/18 05:12 Pulse 64 07/14/18 05:12 Resp 16 07/14/18 05:12 BP 139/86 07/14/18 05:12 Pulse Ox 96 07/13/18 22:56 Intake & Output 07/13/18 07/14/18 07/14/18 18:59 06:59 18:59 Intake Total 50 Balance 50 Intake: IV 50 Invasive Line 1 50 - Labs CBC & Chem 7: 07/13/18 08:22 07/13/18 08:22 Labs: Microbiology - Last 24 Hours (Table) 07/12/18 22:21 Gram Stain - Preliminary Axilla - Left Wound Culture - Preliminary Presumptive MRSA 07/12/18 22:21 Gram Stain - Preliminary Axilla - Left Wound Culture - Preliminary Presumptive MRSA
[2018-07-14 10:34] LABS: Basophils # (A) 0.1 k/uL (0-0.2); Basophils % (A) 1 %; Eosinophils # (A) 0.1 k/uL (0-0.7); Eosinophils % (A) 2 %; HCT 44.1 % (39.0-53.0); HGB 14.7 gm/dL (13.0-17.5); Lymphocytes # (A) 1.5 k/uL (1.0-4.8); Lymphocytes % (A) 27 %; MCH 30.1 pg (25.0-35.0); MCHC 33.4 g/dL (31.0-37.0); MCV 90.1 fL (80.0-100.0); Mean Platelet Volume 6.7; Monocytes # (A) 0.4 k/uL (0-1.0); Monocytes % (A) 7 %; Neutrophils # (A) 3.4 k/uL (1.3-7.7); Neutrophils % (A) 61 %; Platelet Count 294 k/uL (150-450); RDW 12.9 % (11.5-15.5); WBC 5.6 k/uL (3.8-10.6)
[2018-07-14 10:47] LABS: Anion Gap 11 mmol/L; Blood Urea Nitrogen 17 mg/dL (9-20); Calcium 9.3 mg/dL (8.4-10.2); Carbon Dioxide 28 mmol/L (22-30); Chloride 103 mmol/L (98-107); Glucose 90 mg/dL (74-99); Potassium 4.8 mmol/L (3.5-5.1); Sodium 142 mmol/L (137-145)
[2018-07-14] MEDS ORDERED: KETOROLAC 30 MG/ML 1 ML VIAL IM STA (18:14)
--- NOTE | 2018-07-14 19:14 | P.PN ---
Subjective Progress Note Date: 07/14/18 CHIEF COMPLAINT: Left axillary abscess HISTORY OF PRESENT ILLNESS: The patient is a 33-year-old male who is status post drainage of complex left axillary hidradenitis. No reports of fevers or chills. Pain is controlled. He reports decreased swelling and pain along the left axilla. PHYSICAL EXAM: VITAL SIGNS: Currently stable. GENERAL: Well-developed in no acute distress. HEENT: No sclera icterus. Extraocular movements grossly intact. Moist buccal mucosa. Head is atraumatic, normocephalic. Hears conversational speech. No nasal drainage. NECK: Supple without lymphadenopathy. CHEST: Non-labored respirations and equal bilateral excursions. CARDIOVASCULAR: Regular rate with regular rhythm. Palpable 2+ radial pulses. ABDOMEN: Soft. Nondistended. No peritonitis. Minimal diffuse tenderness MUSCULOSKELETAL: No clubbing, cyanosis or edema. NEUROLOGIC: No focal or lateralizing signs. Cranial nerves II through XII grossly intact. PSYCH: Appropriate affect. Alert and oriented to person, place and time. SKIN: Induration and cellulitis moderately resolved. Dressing and packing changed with iodoform 6 inch strip including 4 x 4's and ABDs with 3M wide surgical tape LABS: Reviewed ASSESSMENT: 1. Complicated left axillary abscess, deep, 4 cm PLAN: 1. Discontinue changes may be daily after showering 2. Packing may last for 48 hours 3. No additional surgical intervention 4. Management per infectious disease for MRSA infection Objective - Vital Signs Vital signs: Vital Signs Temp 97.7 F 07/14/18 05:12 Pulse 64 07/14/18 05:12 Resp 16 07/14/18 05:12 BP 139/86 07/14/18 05:12 Pulse Ox 96 07/13/18 22:56 - Labs CBC & Chem 7: 07/14/18 10:06 07/14/18 10:06 Labs: Microbiology - Last 24 Hours (Table) 07/12/18 22:21 Gram Stain - Preliminary Axilla - Left Wound Culture - Preliminary Presumptive MRSA 07/12/18 22:21 Gram Stain - Preliminary Axilla - Left Wound Culture - Preliminary Presumptive MRSA 07/12/18 22:21 Gram Stain - Preliminary Axilla - Left Wound Culture - Preliminary Presumptive MRSA Assessment and Plan (1) Cutaneous abscess of left axilla Current Visit: Yes Status: Acute Code(s): L02.412 - CUTANEOUS ABSCESS OF LEFT AXILLA SNOMED Code(s): 22893450 (2) Cellulitis of axilla, left Current Visit: Yes Status: Acute Code(s): L03.112 - CELLULITIS OF LEFT AXILLA SNOMED Code(s): 26873255 (3) Depression Current Visit: Yes Status: Acute Code(s): F32.9 - MAJOR DEPRESSIVE DISORDER , SINGLE EPISODE, UNSPECIFIED SNOMED Code(s): 30123261 (4) Suicidal ideation Current Visit: Yes Status: Acute Code(s): R45.851 - SUICIDAL IDEATIONS SNOMED Code(s): 8156585 (5) MRSA (methicillin resistant Staphylococcus aureus) infection Current Visit: Yes Status: Acute Code(s): A49.02 - METHICILLIN RESIS STAPH INFECTION, UNSP SITE SNOMED Code(s): 138661697
[2018-07-14] MEDS ORDERED: lamoTRIgine 100 MG TAB PO SCH (20:00)
[2018-07-14] MEDS: clonazePAM 0.5 MG TAB PO PRN (20:07)
--- NOTE | 2018-07-14 23:29 | PN ---
PROGRESS NOTE DATE OF SERVICE: 07/14/2018. REASON FOR FOLLOWUP: Left axillary MRSA abscess. INTERVAL HISTORY: The patient is currently afebrile. He is breathing comfortably. Denies having any chest pain, shortness of breath or cough. No abdominal pain or any worsening pain to the left axillary area. EXAMINATION: Blood pressure 139/86, pulse of 64, temperature 97.7. He is 96% on room air. General description is a middle-aged male lying in bed in no distress. Left axillary area: The wound is deep, but no significant induration or any foul- smelling drainage was noticed, swelling or redness. LABS: Hemoglobin is 14.7, white count of 5.6. BUN of 17, creatinine 0.99. DIAGNOSTIC IMPRESSION AND PLAN: Patient with methicillin-resistant Staphylococcus aureus left axillary abscess, status post drainage that is sensitive to daptomycin that will be continued. Hopefully finish therapy with oral Bactrim DS. Local wound care with iodoform with Aquacel Silver packing. Continue supportive care. MMODL / IJN: [id number] /
[2018-07-15] MEDS: ARIPiprazole 2 MG TAB PO SCH (08:55)
[2018-07-15] MEDS: IBUPROFEN 600 MG TAB PO PRN ×2 (08:57→14:23)
--- NOTE | 2018-07-15 13:12 | P.PN ---
Subjective Progress Note Date: 07/15/18 Principal diagnosis: Diagnoses; bipolar affective disorder most probably type with the most recent onset of depression. Diagnoses; bipolar affective disorder most probably type with the most recent onset of depression. Diagnoses; bipolar affective disorder most probably type 2 with the most recent onset of depression. Interval history: Patient was interviewed and reviewed his medical history which he corroborated. It includes the following personal social history is born in [place]. Raised by both parents. Said he dropped out of ninth grade and got his GED. Occupation: [employer] Mental status examination: This is a 33-year-old male who looks his stated age but is very depressed tearful withdrawn during the entire interview. He was pushing his IV part to the interview and was able to ambulate without difficulties. Mood is rated as 2-3 out of 2-3 depressed anxious 8 out of 10 and ruminating about his impending divorce. Some mixture family has 7 total children in the family and they were taken away by child protective services. He is suicidal but said he feels safe and will not harm himself on the unit and will seek nursing staff reports staff when he feels this way. He is slow and hesitant and halting. Attitude and behavior is guarded withdrawn. Mood is severely depressed with no suicidal ideation. Affect is flat incongruent at times. Orientation is to person and place and time. Thought content no delusions or obsessions or phobias. Risk factors suicidal ideation with recent attempts and brought to the hospital by police. Perception denies any hallucinations visual auditory or tactile. I'll process tangential. Concentration impaired per observation with the patient is not able to focus and concentrate on Thursday for intermediate and remote history he is totally consumed with grief of loss of his marriage. It is of interest he went through a similar episode in his first marriage. Recent memory is improved he is only able to do 3 out of 3 recall. Remote memory is improved as he can recall past events are related to his history. His intelligence is average based on history raised on vocabulary Syntex grammar content. Judgment improved per patient's history of present illness. Insight has improved. Discussed use of ativan and discouraged its use. and changed to klonopin 0.25 mg po prn. Dc'd Abilify and added Invega 3 mg at bedtime; Increase Lamictal 100 mg tid. Justification for Inpatient Hospitalization - depression resulting in significant loss of functioning.] [Dangerous to self with need for controlled environment.] [Emotional or behavioral conditions and complications requiring 24 hour medical and nursing care.] [Need for special drug therapy, or other therapeutic program requiring continuous hospitalization.] [Failure of social [Inability to meet basic life and health needs.] [Biomedical conditions and complications requiring 24 hour medical and nursing care.] [Recovery environment includes detrimental family structure, logical impediments to out-patient treatment.] [Failure of treatment at a lower level of care.] Objective - Vital Signs Vital signs: Vital Signs Temp 97.7 F 07/15/18 05:15 Pulse 97 07/15/18 05:15 Resp 14 07/15/18 05:15 BP 130/85 07/15/18 05:15 Pulse Ox 96 07/13/18 22:56 - Labs CBC & Chem 7: 07/14/18 10:06 07/14/18 10:06 Labs: Microbiology - Last 24 Hours (Table) 07/12/18 22:21 Gram Stain - Preliminary Axilla - Left Wound Culture - Preliminary Presumptive MRSA 07/12/18 22:21 Anaerobic Culture - Preliminary Axilla - Left 07/12/18 22:21 Anaerobic Culture - Preliminary Axilla - Left 07/12/18 22:21 Anaerobic Culture - Preliminary Axilla - Left 07/12/18 22:21 Gram Stain - Final Axilla - Left Wound Culture - Final Methicillin resist S. aureus 07/12/18 22:21 Gram Stain - Final Axilla - Left Wound Culture - Final Methicillin resist S. aureus
[2018-07-15] MEDS: lamoTRIgine 100 MG TAB PO SCH ×2 (15:59→19:44)
--- NOTE | 2018-07-15 17:00 | PN ---
PROGRESS NOTE DATE OF SERVICE: 07/15/2018 REASON FOR FOLLOWUP: Left axillary abscess and cellulitis. INTERVAL HISTORY: The patient is currently afebrile. He is breathing comfortably. Denies having any chest pain or shortness of breath or cough. He did have some diarrhea this morning, but none since then. PHYSICAL EXAMINATION: Blood pressure is 130/85 with a pulse of 97, temperature 97.7. General description is a middle-aged male up in the room in no distress. RESPIRATORY SYSTEM: Unlabored breathing. Clear to auscultation anteriorly. HEART: S1, S2. rate and rhythm. ABDOMEN: Soft. No tenderness. Left axillary wound is currently dressed up, but no obvious drainage on the dressing. LABS: White count of 5.6, BUN of 17, creatinine 0.99. DIAGNOSTIC IMPRESSION AND PLAN: 1. Patient with left axillary methicillin-resistant Staphylococcus aeruginosa abscess and cellulitis, status post drainage, currently covered with daptomycin. That can be transitioned to oral antibiotic, hopefully tomorrow at the time of discharge. Depending on his clinical response, continue . 2. Patient with diarrhea; could be antibiotic-associated. Clinically C difficile. If diarrhea persists, will check stool for C difficile and treat if positive. MMODL / IJN: [id number] /
[2018-07-15] MEDS: clonazePAM 0.5 MG TAB PO PRN (19:43)
[2018-07-15] MEDS ORDERED: PALIPERIDONE 3 MG TAB.ER.24 PO SCH (20:00)
[2018-07-16 06:44] VITALS: RESP 16
[2018-07-16] MEDS: lamoTRIgine 100 MG TAB PO SCH ×3 (08:12→21:17)
--- NOTE | 2018-07-16 11:41 | P.PN ---
Subjective Progress Note Date: 07/16/18 Principal diagnosis: Diagnoses; bipolar affective disorder most probably type with the most recent onset of depression. Diagnoses; bipolar affective disorder most probably type with the most recent onset of depression. Diagnoses; bipolar affective disorder most probably type 2 with the most recent onset of depression. Interval history: Patient was interviewed and reviewed his medical history which he corroborated. It includes the following personal social history is born in [place]. Raised by both parents. Said he dropped out of ninth grade and got his GED. Occupation: [employer] Mental status examination: This is a 33-year-old male who looks his stated age but is very depressed tearful withdrawn during the entire interview. He was pushing his IV part to the interview and was able to ambulate without difficulties. Mood is rated as 2-3 out of 2-3 depressed anxious 8 out of 10 and ruminating about his impending divorce. Some mixture family has 7 total children in the family and they were taken away by child protective services. He is suicidal but said he feels safe and will not harm himself on the unit and will seek nursing staff reports staff when he feels this way. He is slow and hesitant and halting. Attitude and behavior is guarded withdrawn. Mood is severely depressed with no suicidal ideation. Affect is flat incongruent at times. Orientation is to person and place and time. Thought content no delusions or obsessions or phobias. Risk factors suicidal ideation with recent attempts and brought to the hospital by police. Perception denies any hallucinations visual auditory or tactile. I'll process tangential. Concentration impaired per observation with the patient is not able to focus and concentrate on Thursday for intermediate and remote history he is totally consumed with grief of loss of his marriage. It is of interest he went through a similar episode in his first marriage. Recent memory is improved he is only able to do 3 out of 3 recall. Remote memory is improved as he can recall past events are related to his history. His intelligence is average based on history raised on vocabulary Syntex grammar content. Judgment improved per patient's history of present illness. Insight has improved. Discussed use of ativan and discouraged its use. and changed to klonopin 0.25 mg po prn. Dc'd Abilify and added Invega 6 mg at bedtime; Increase Lamictal 100 mg tid. Justification for Inpatient Hospitalization - depression resulting in significant loss of functioning.] [Dangerous to self with need for controlled environment.] [Emotional or behavioral conditions and complications requiring 24 hour medical and nursing care.] [Need for special drug therapy, or other therapeutic program requiring continuous hospitalization.] [Failure of social [Inability to meet basic life and health needs.] [Biomedical conditions and complications requiring 24 hour medical and nursing care.] [Recovery environment includes detrimental family structure, logical impediments to out-patient treatment.] [Failure of treatment at a lower level of care.] Thursday discharge if stable Objective - Vital Signs Vital signs: Vital Signs Temp 97.9 F 07/16/18 06:42 Pulse 71 07/16/18 06:42 Resp 16 07/16/18 06:42 BP 132/73 07/16/18 06:42 Pulse Ox 96 07/13/18 22:56 Intake & Output 07/15/18 07/16/18 07/16/18 18:59 06:59 18:59 Intake Total 50 Balance 50 Intake: IV 50 Invasive Line 1 50 - Labs CBC & Chem 7: 07/14/18 10:06 07/14/18 10:06 Labs: Microbiology - Last 24 Hours (Table) 07/12/18 22:21 Gram Stain - Final Axilla - Left Wound Culture - Final Methicillin resist S. aureus
--- NOTE | 2018-07-16 14:12 | PN ---
PROGRESS NOTE DATE OF SERVICE: 07/16/2018 REASON FOR FOLLOWUP: Left axillary MRSA abscess and cellulitis. INTERVAL HISTORY: The patient is currently afebrile. He is breathing comfortably. Pain to the left axillary area has improved. The patient is complaining of IV and wants it to be out. No abdominal pain. His diarrhea has resolved. PHYSICAL EXAMINATION: On examination, blood pressure 132/73 with a pulse of 71, temperature 97.9. He is 92% on room air. General description is a middle aged male up in the room in no distress. RESPIRATORY SYSTEM: Unlabored breathing, clear to auscultation anteriorly. HEART: S1, S2. Regular rate and rhythm. ABDOMEN: Soft, no tenderness. Left axillary area swelling has decreased. No drainage. LABS: No blood culture. Wound culture has MRSA. White count normal. DIAGNOSTIC IMPRESSION AND PLAN: Patient with left axillary abscess, status post drainage, has received about 4 to 5 days of IV antibiotic therapy. The patient is currently complaining of the IV. We will discontinue his IV and switch him over to Bactrim DS one twice a day for about a week. Continue supportive care. MMODL / IJN: [id number] /
[2018-07-16] MEDS: IBUPROFEN 600 MG TAB PO PRN (15:43)
[2018-07-16] MEDS: SULFAMETHOX-TMP 800-160MG 1 EACH TAB PO SCH (21:17)
[2018-07-16] MEDS: PALIPERIDONE 6 MG TAB.ER.24 PO SCH (21:17)
[2018-07-17] MEDS: SULFAMETHOX-TMP 800-160MG 1 EACH TAB PO SCH ×2 (08:07→21:15)
[2018-07-17] MEDS: lamoTRIgine 100 MG TAB PO SCH ×3 (08:07→21:15)
--- NOTE | 2018-07-17 09:19 | P.PN ---
Subjective Progress Note Date: 07/16/18 CHIEF COMPLAINT: Left axillary abscess HISTORY OF PRESENT ILLNESS: The patient is a 33-year-old male who is status post drainage of complex left axillary hidradenitis. Denies any pain. He is doing very well. No fevers or chills. PHYSICAL EXAM: VITAL SIGNS: Currently stable. GENERAL: Well-developed in no acute distress. HEENT: No sclera icterus. Extraocular movements grossly intact. Moist buccal mucosa. Head is atraumatic, normocephalic. Hears conversational speech. No nasal drainage. NECK: Supple without lymphadenopathy. CHEST: Non-labored respirations and equal bilateral excursions. CARDIOVASCULAR: Regular rate with regular rhythm. Palpable 2+ radial pulses. ABDOMEN: Soft. Nondistended. No peritonitis. Minimal diffuse tenderness MUSCULOSKELETAL: No clubbing, cyanosis or edema. NEUROLOGIC: No focal or lateralizing signs. Cranial nerves II through XII grossly intact. PSYCH: Appropriate affect. Alert and oriented to person, place and time. SKIN: Dressing intact ASSESSMENT: 1. Complicated left axillary abscess, deep, 4 cm PLAN: 1. Dressing change daily after showering when he goes home. 2. Follow-up as outpatient in 1 week following discharge. 3. Will follow as needed. Objective - Vital Signs Vital signs: Vital Signs Temp 97.5 F L 07/17/18 06:43 Pulse 80 07/17/18 06:43 Resp 16 07/17/18 06:43 BP 138/74 07/17/18 06:43 Pulse Ox 96 07/13/18 22:56 - Labs CBC & Chem 7: 07/14/18 10:06 07/14/18 10:06 Labs: Microbiology - Last 24 Hours (Table) 07/12/18 22:21 Anaerobic Culture - Final Axilla - Left 07/12/18 22:21 Anaerobic Culture - Final Axilla - Left 07/12/18 22:21 Anaerobic Culture - Final Axilla - Left Assessment and Plan (1) Cutaneous abscess of left axilla Current Visit: Yes Status: Acute Code(s): L02.412 - CUTANEOUS ABSCESS OF LEFT AXILLA SNOMED Code(s): 71828633 (2) Cellulitis of axilla, left Current Visit: Yes Status: Acute Code(s): L03.112 - CELLULITIS OF LEFT AXILLA SNOMED Code(s): 97491713 (3) Depression Current Visit: Yes Status: Acute Code(s): F32.9 - MAJOR DEPRESSIVE DISORDER , SINGLE EPISODE, UNSPECIFIED SNOMED Code(s): 10551154 (4) Suicidal ideation Current Visit: Yes Status: Acute Code(s): R45.851 - SUICIDAL IDEATIONS SNOMED Code(s): 2974586 (5) MRSA (methicillin resistant Staphylococcus aureus) infection Current Visit: Yes Status: Acute Code(s): A49.02 - METHICILLIN RESIS STAPH INFECTION, UNSP SITE SNOMED Code(s): 812340772
[2018-07-17] MEDS: IBUPROFEN 600 MG TAB PO PRN (09:39)
--- NOTE | 2018-07-17 09:50 | P.PN ---
Progress Note - Text Interval history: The patient is found in the hallway at the medication window he follows me to an interview room. He has a diagnosis of bipolar 2 disorder. He was admitted with suicidal ideation in the context of alcohol use. The patient states that he is doing quite well. Appetite and sleep are stable. He has been attending groups. He briefly discussed the circumstances precipitating this admission. He is sad that his is moving out and they will separate is hoping that he is able to make good choices after discharge and work towards reconciling. He was glad reports that his boss came to the hospital and we'll supportive. Mental status exam: The patient is alert he is a 33-year-old male appearing his stated age. He is dressed in hospital attire. Eye contact is appropriate speech is fluent spontaneous nonpressured. He reports no suicidal or homicidal ideation intent or plan. He reports no auditory or visual hallucinations or specific delusions. He demonstrates no symptoms of psychosis. He does not appear hypomanic or manic. He demonstrates an appropriate range of affect. He readily engages in conversation. Insight and judgment appear to be improving. He is oriented to person place and date. He demonstrates no verbal or physical aggressiveness he demonstrates no abnormal involuntary movements. Plan: The patient will continue on his current psychotropic medications. Vital signs reviewed. He is encouraged to continue participating in the milieu and we 'll monitor for safety.
[2018-07-17] MEDS: PALIPERIDONE 6 MG TAB.ER.24 PO SCH (21:15)
[2018-07-17] MEDS: diphenhydrAMINE 2% CREAM 28.4 GM TUBE TOPICAL SCH (21:16)
[2018-07-17] MEDS: clonazePAM 0.5 MG TAB PO PRN (22:16)
[2018-07-18] MEDS: diphenhydrAMINE 25 MG CAP PO PRN (00:31)
[2018-07-18] MEDS: lamoTRIgine 100 MG TAB PO SCH ×3 (07:38→20:54)
[2018-07-18] MEDS: diphenhydrAMINE 2% CREAM 28.4 GM TUBE TOPICAL SCH ×2 (07:38→20:54)
[2018-07-18] MEDS: SULFAMETHOX-TMP 800-160MG 1 EACH TAB PO SCH ×2 (07:38→20:54)
[2018-07-18] MEDS: IBUPROFEN 600 MG TAB PO PRN (09:12)
--- NOTE | 2018-07-18 10:17 | P.PN ---
Progress Note - Text Interval history: The patient is found in the hallway he follows me to an interview room. He reports that his mood is stabilizing. He reports feeling more down last evening as he considered the fact that he could be going home to an empty house. He states that he is processing that's and he has a friend that he can reconnect with and his mother is always available for support. He has no questions regarding his psychotropic medication. He remains compliant on the mental health unit in terms of taking medication and attending groups. Mental status exam: The patient is alert he is dressed in hospital attire and his own clothing. He is wearing a sling on his left upper extremity. Eye contact is appropriate speech is fluent spontaneous nonpressured. He states his mood is improving affect is appropriately expressive and appears euthymic this morning. He denies having any suicidal or homicidal ideation intent or plan. He is reporting no auditory or visual hallucinations or any specific delusions. There is no observed evidence of psychosis. He does not appear hypomanic or manic. Insight and judgment appear to be improving. He remains oriented to person place and date. He demonstrates no psychomotor agitation and is able to sit calmly in the chair. He demonstrates no verbal or physical aggressiveness. Plan: The patient will continue on his current psychotropic medication. It does appear that he is stabilizing. Vital signs reviewed. Continue to monitor him for safety. He is anticipating a discharge tomorrow.
[2018-07-18] MEDS: clonazePAM 0.5 MG TAB PO PRN (10:44)
[2018-07-18] MEDS: PALIPERIDONE 6 MG TAB.ER.24 PO SCH (20:54)
[2018-07-19 05:23] VITALS: BP 126/84
[2018-07-19 06:06] VITALS: PULSE 97; TEMP 97.4
[2018-07-19] MEDS: diphenhydrAMINE 2% CREAM 28.4 GM TUBE TOPICAL SCH (08:32)
[2018-07-19] MEDS: SULFAMETHOX-TMP 800-160MG 1 EACH TAB PO SCH (08:33)
[2018-07-19] MEDS: lamoTRIgine 100 MG TAB PO SCH (08:33)
[2018-07-19] MEDS: IBUPROFEN 600 MG TAB PO PRN (13:00)
--- NOTE | 2018-07-19 16:01 | PN ---
PROGRESS NOTE DATE OF SERVICE: 07/19/2018 REASON FOR FOLLOWUP: Left axilla MRSA abscess and cellulitis. INTERVAL HISTORY: The patient is currently afebrile. He is breathing comfortably. Denies having any chest pain, shortness of breath or cough. No abdominal pain or any worsening pain to the left axillary area. PHYSICAL EXAMINATION: Blood pressure is 126/84, pulse of 97, temperature 97.4. General description is a middle-aged male up in the room in no distress. RESPIRATORY SYSTEM: Unlabored breathing. Clear to auscultation anteriorly. HEART: S1, S2. Regular rate and rhythm. ABDOMEN: Soft. No tenderness. Left axilla swelling and redness improved. No drainage on the dressing. DIAGNOSTIC IMPRESSION AND PLAN: Patient left axillary methicillin-resistant Staphylococcus aeruginosa abscess and cellulitis, currently on oral Bactrim DS, to continue for about a week with close outpatient followup. Continue supportive care. MMODL / IJN: [id number] /
--- NOTE | 2018-07-21 14:01 | P.DS ---
Providers Date of admission: 07/11/18 07:49 Expected date of discharge: 07/19/18 Attending physician: Zenon Hooker DO Consults: 07/11/18 09:18 Consult Physician Routine Consulting Provider: Patricio Hair Consult Reason/Comments: H&P for mental health assesment has skin abcess Do you want consulting provider notified?: Yes 07/11/18 12:18 Consult Physician Urgent Consulting Provider: Zahra Link Consult Reason/Comments: left armpit infection Do you want consulting provider notified?: Yes 07/11/18 12:20 Consult Physician Urgent Consulting Provider: Skye Hartley Consult Reason/Comments: Consult for I&D of left axilla site. Do you want consulting provider notified?: Yes Primary care physician: Bettina Gu [facility] Course: Identifying Information: [Diagnoses; bipolar affective disorder most probably type with the most recent onset of depression.] Chief Complaint and Reason for Hospitalization: [] Course of Treatment: [] Physical/Medical Condition on Discharge:[] Functional Condition on Discharge: [] Discharge Medications: [Venlafaxine 37.5 mg by mouth daily at bedtime and Lamictal 25 mg by mouth daily at bedtime his medications may need to be further titrated and outpatient basis] Number of Routinely Scheduled Antipsychotic Medication(s) Prescribed: [None] Appropriate Justification for discharging the Patient on Two or More Antipsychotic Medications: [] Discharge Diagnosis: [Bipolar affective disorder mild stable on medications] Recommendations/Follow-up/Aftercare: [Follow-up with his primary care physician range for therapy and psychiatrist] Principal diagnosis: Diagnoses; bipolar affective disorder most probably type with the most recent onset of depression. Diagnoses; bipolar affective disorder most probably type with the most recent onset of depression. Diagnoses; bipolar affective disorder most probably type 2 with the most recent onset of depression. Interval history: Patient was interviewed and reviewed his medical history which he corroborated. It includes the following personal social history is born in [place]. Raised by both parents. Said he dropped out of ninth grade and got his GED. Occupation: restaurant delivery driver for [employer] Mental status examination: This is a 33-year-old male who looks his stated age but is very depressed tearful withdrawn during the entire interview. He was pushing his IV part to the interview and was able to ambulate without difficulties. Mood is rated as 2-3 out of 2-3 depressed anxious 8 out of 10 and ruminating about his impending divorce. Some mixture family has 7 total children in the family and they were taken away by child protective services. He is suicidal but said he feels safe and will not harm himself on the unit and will seek nursing staff reports staff when he feels this way. He is slow and hesitant and halting. Attitude and behavior is guarded withdrawn. Mood is severely depressed with no suicidal ideation. Affect is flat incongruent at times. Orientation is to person and place and time. Thought content no delusions or obsessions or phobias. Risk factors suicidal ideation with recent attempts and brought to the hospital by police. Perception denies any hallucinations visual auditory or tactile. I'll process tangential. Concentration impaired per observation with the patient is not able to focus and concentrate on Thursday for intermediate and remote history he is totally consumed with grief of loss of his marriage. It is of interest he went through a similar episode in his first marriage. Recent memory is improved he is only able to do 3 out of 3 recall. Remote memory is improved as he can recall past events are related to his history. His intelligence is average based on history raised on vocabulary Syntex grammar content. Judgment improved per patient's history of present illness. Insight has improved. Discussed use of ativan and discouraged its use. and changed to klonopin 0.25 mg po prn. Dc'd Abilify and added Invega 6 mg at bedtime; Increase Lamictal 100 mg tid. Discharge today 07/19/2018 Patient Condition at Discharge: Stable Plan - Discharge Summary Discharge Rx Participant: Yes New Discharge Prescriptions: New lamoTRIgine [LaMICtal] 100 mg PO TID #90 tab Paliperidone [Invega] 6 mg PO Q24H #30 tab.er.24 Sulfamethox-Tmp 800-160Mg [Bactrim DS 800-160 mg] 1 each PO BID tab Discontinued Ibuprofen [Motrin Ib] 600 mg PO Q6H PRN PRN Reason: Pain D-Methorphan/PE/Acetaminophen [Vicks Dayquil Liquicaps] 1 cap PO DAILY PRN PRN Reason: Allergy Symptoms Ibuprofen [Motrin] 800 mg PO Q6HR #20 tab Discharge Medication List Paliperidone [Invega] 6 mg PO Q24H #30 tab.er.24 07/19/18 [Rx] Sulfamethox-Tmp 800-160Mg [Bactrim DS 800-160 mg] 1 each PO BID tab 07/19/18 [ Rx] lamoTRIgine [LaMICtal] 100 mg PO TID #90 tab 07/19/18 [Rx] Follow up Appointment(s)/Referral(s): [facility] [Outside] - 1-2 Days (Walk In @ [facility] Thursday 8:30 - 3pm Thursday 10:30 - 5pm Thursday 8:30 - 3pm) Riccardo Dunbar MD [Primary Care Provider] - 1-2 days Zarha Link MD [STAFF PHYSICIAN] - 1 Week Patient Instructions/Handouts: MRSA (Methicillin-Resistant Staphylococcus Aureus) (GEN), Depression (GEN), Abscess (GEN), Suicide Prevention (GEN) Activity/Diet/Wound Care/Special Instructions: Change dressing and packing DAILY AFTER SHOWERING. Remove packing PRIOR to shower. Change dressing with iodoform 6 inch strip into the wound and cover with 4 x 4's and ABDs with 3M wide surgical tape. Activity and diet as tolerated. Avoid the use of street drugs and alcohol. Take all medications as prescribed. When you are in need of refills on your medications please contact your medical provider and/or outpatient psychiatrist to have this done. Please go to scheduled outpatient appointments for aftercare treatment. If symptoms return or become worse call the crisis line at and/or go to the nearest emergency room for an evaluation. Discharge Disposition: HOME SELF-CARE
== END 2018-07-19 13:50 | disposition home or self-care (01) | DRG 885 ==
LOC: EC 03:36 → 3MHU 07:49
PROVIDERS: ADMIT Psychiatry & Neurology Psychiatry; ATTEND Psychiatry & Neurology Psychiatry
PROC: 0J9F0ZX Drainage of Left Upper Arm Subcutaneous Tissue and Fascia, Open Approach, Diagnostic (ICD-10-PCS; principal; 2018-07-12)
DX: F31.81 Bipolar II disorder (principal); L02.412 Cutaneous abscess of left axilla; L03.112 Cellulitis of left axilla; R45.851 Suicidal ideations; L73.2 Hidradenitis suppurativa; Y90.6 Blood alcohol level of 120-199 mg/100 ml; F17.200 Nicotine dependence, unspecified, uncomplicated; Z82.5 Family history of asthma and other chronic lower respiratory diseases; Z82.3 Family history of stroke; B95.62 Methicillin resistant Staphylococcus aureus infection as the cause of diseases classified elsewhere
CPT/HCPCS: 80048; 80053; 80061; 80306; 82075; 83036; 84443; 85025; 87070; 87075; 87077; 87186; 87205; 99285

== ENCOUNTER → 2018-07-12 | Day surgery (SDC) | payer SELFPAY ==
[~2018-07-12] MED LIST: BUPIVACAIN-EPI 0.25%-1:200,000 30 ML VIAL SQ ONE; HYDROcodone/APAP 5-325MG 1 EACH TAB PO PRN; IV FLUID CONTINUATION 700 ML IV ONE; KETOROLAC 30 MG/ML 1 ML VIAL IM SCH; NALOXONE 0.4 MG/ML 1 ML VIAL IV PRN
[2018-07-12 22:39] VITALS: RESP 20; TEMP 97.3
[2018-07-12] MEDS: HYDROmorphone 1 MG/ML 1 ML SYRINGE IVP ONE ×2 (22:41→22:47)
[2018-07-12 22:58] VITALS: BP 159/90; PULSE 100
== END ==
LOC: OR 13:19
PROVIDERS: ATTEND Surgery Plastic and Reconstructive Surgery
DX: Z53.8 Procedure and treatment not carried out for other reasons (principal)
CPT/HCPCS: J1885; J1170

== ENCOUNTER 2018-09-20 16:21 | Emergency (ER) | payer OTHER ==
[2018-09-20 16:46] VITALS: RESP 18
[2018-09-20] MEDS ORDERED: LIDOCAINE 1% INJ 10MG/ML (20 ML MDV) SQ ONE (18:12)
[2018-09-20] MEDS ORDERED: ceFAZolin 1,000 MG VIAL IM STA (18:34)
[2018-09-20] MEDS ORDERED: SULFAMETH-TMP DS STARTER PACK 2 TAB BTL PO STA (18:35)
[2018-09-20] MEDS ORDERED: CEPHALEXIN 500MG STARTER PACK 4 CAP BTL PO STA (18:35)
--- NOTE | 2018-09-20 18:37 | ED ---
Skin/Abscess/FB HPI - General Chief complaint: Skin/Abscess/Foreign Body Stated complaint: Cyst on chest Time Seen by Provider: 09/20/18 16:54 Source: patient Mode of arrival: ambulatory Limitations: no limitations - History of Present Illness Initial comments: 33yo male with PMH of MRSA presenting today for cc of "cyst on chest" patient states that he noticed a pimple like lesion on chest about 1 week ago. Left side of chest, he though it was a pimple or ingrown hair. He states it grew in size and he was able to express pus out of it today. Pt was concerned it was turn into MRSA infection and presented today for evaluation. Pt denies fever, chillls, nightsweats, diarrhea, general malaise, rapid spread of erythema. Upon arrival pt VS stable, pt afebrile, well appearing. No signs of distress. Remainder of ROS (-), patient denies any recent shortness of breath, chest pain , back pain, abdominal pain, nausea or vomiting, numbness or tingling, dysuria or hematuria, constipation or diarrhea, headaches or visual changes, or any other complaints. - Related Data Previous Rx's Medication Instructions Recorded Paliperidone [Invega] 6 mg PO Q24H #30 tab.er.24 07/19/18 Sulfamethox-Tmp 800-160Mg [Bactrim 1 each PO BID tab 07/19/18 DS 800-160 mg] lamoTRIgine [LaMICtal] 100 mg PO TID #90 tab 07/19/18 Cephalexin [Keflex] 500 mg PO Q6HR 7 Days #28 cap 09/20/18 Sulfamethox-Tmp 800-160Mg [Bactrim 1 tab PO Q12HR 7 Days #14 tab 09/20/18 DS 800-160 mg] Allergies Allergy/AdvReac Type Severity Reaction Status Date / Time contact metal agent Allergy Rash/Hives Verified 09/20/18 16:46 Review of Systems ROS Statement: Those systems with pertinent positive or pertinent negative responses have been documented in the HPI. ROS Other: All systems not noted in ROS Statement are negative. Constitutional: Denies: fever, chills, night sweats ENT: Denies: ear pain, throat pain Respiratory: Denies: cough, dyspnea, wheezes, hemoptysis, stridor Cardiovascular: Denies: chest pain, palpitations Endocrine: Denies: fatigue Gastrointestinal: Denies: as per HPI, abdominal pain, nausea, vomiting, diarrhea , constipation, hematemesis, melena, hematochezia Genitourinary: Denies: urgency, dysuria Musculoskeletal: Denies: back pain Skin: Reports: lesions (left sided chest wall "cyst") Neurological: Denies: headache, weakness, numbness, paresthesias, confusion Past Medical History Past Medical History: No Reported History History of Any Multi-Drug Resistant Organisms: MRSA Date of last positivie culture/infection: 2017 MDRO Source:: left axilla Past Surgical History: Hernia Repair Additional Past Surgical History / Comment(s): MRSA I&D left axilla Past Psychological History: Depression Smoking Status: Current every day smoker Past Alcohol Use History: Occasional Past Drug Use History: None Reported - Past Family History Mother Family Medical History: Asthma, CVA/TIA General Exam - General Exam Comments Initial Comments: General: The patient is awake and alert, in no distress, and does not appear acutely ill. Eye: Pupils are equal, round and reactive to light, extra-ocular movements are intact. No nystagmus. There is normal conjunctiva bilaterally. No signs of icterus. Ears, nose, mouth and throat: There are moist mucous membranes and no oral lesions. Neck: The neck is supple, there is no tenderness or JVD. Cardiovascular: There is a regular rate and rhythm. No murmur, rub or gallop is appreciated. Respiratory: Lungs are clear to auscultation, respirations are non-labored, breath sounds are equal. No wheezes, stridor, rales, or rhonchi. Musculoskeletal: Normal ROM, no tenderness. Strength 5/5. Sensation intact. Radial pulses equal bilaterally 2+. Neurological: A&O x 3. CN II-XII intact, There are no obvious motor or sensory deficits. Coordination appears grossly intact. Speech is normal. Skin: Skin is warm and dry and no rashes. 2cm circular fluctuant area of the left anterior chest wall, erythematous with mild surrounding erythema. central dimple. Psychiatric: Cooperative, appropriate mood & affect, normal judgment. Limitations: no limitations Course Vital Signs 09/20/18 16:43 Temperature 98.1 F Pulse Rate 70 Respiratory 18 Rate Blood Pressure 114/76 O2 Sat by Pulse 98 Oximetry Procedures - Incision & Drainage Consent Obtained: verbal consent Time Out Performed?: Yes Indication: abscess Site: chest (left anterior chest wall) Size (cm): 2 Anesthetic Used: lidocaine 1% Amount (mLs): 3 I&D Cleaning Method: Iodine Sterile Field Used?: Yes Scalpel Used: #11 Needle Aspiration Performed?: No Irrigation Performed?: Yes I&D Drainage Obtained: Pus, Blood Culture Obtained?: Yes Patient Tolerated Procedure: well, no complications Medical Decision Making - Medical Decision Making PE findings concerning for abscess with surrounding cellulitis, appears mild at this time. No signs of systemic spread of infection. Vital signs stable, patient afebrile. Pt appears nontoxic. I&D performed. Cultures pending. Pt tolerated procedure well. Sterile bandage applied. Pt given 1g cefzol IM. Pt started on bactrim and keflex for cellulitis with abscess, with MRSA coverage. She was given strict return parameters for spread of infection/redness/ increasing pain, pt verbalized understanding. Case discussed with Dr. Villa who agreed with impression and plan. At this time I feel pt is stable for discharge. Pt denied questions at this time. Disposition Clinical Impression: Abscess or cellulitis of chest wall Disposition: HOME SELF-CARE Condition: Good Instructions: Cellulitis (ED), Abscess Incision and Drainage (ED) Additional Instructions: Please use medication as discussed. Please follow-up with family doctor in the next 2 days. Please return to emergency room if the symptoms increase or worsen or for any other concerns, spread of redness, increasing swelling/pain, fever, chills, nightsweats as discussed. Prescriptions: Cephalexin [Keflex] 500 mg PO Q6HR 7 Days #28 cap Sulfamethox-Tmp 800-160Mg [Bactrim DS 800-160 mg] 1 tab PO Q12HR 7 Days #14 tab Is patient prescribed a controlled substance at d/c from ED?: No Referrals: Riccardo Dunbar MD [Primary Care Provider] - 1-2 days Time of Disposition: 18:37
[2018-09-20 19:27] VITALS: BP 132/85; PULSE 88; TEMP 97.8
== END 2018-09-20 19:25 | disposition home or self-care (01) ==
LOC: EC 16:21
DX: L02.213 Cutaneous abscess of chest wall (principal); F17.200 Nicotine dependence, unspecified, uncomplicated; Z91.048 Other nonmedicinal substance allergy status; Z86.14 Personal history of Methicillin resistant Staphylococcus aureus infection
CPT/HCPCS: 87070; 87205; 99283; 10060; 96372; J0690; J2001; 87077; 87186